=== PATIENT | male | born 1970 | race Caucasian/White ===

== ENCOUNTER 2016-12-09 17:16 | Emergency (ER) | payer OTHER ==
[~2016-12-09] VITALS: Ht 175.3 cm; Wt 134.7 kg
[2016-12-09 17:57] LABS: ABSOLUTE BASOPHIL COUNT 0 /CUMM (0.0-0.2); ABSOLUTE EOSINOPHIL COUNT 0.1 /CUMM (0.0-0.7); ABSOLUTE GRANULOCYTE CT 6.2 /CUMM (1.4-6.5); BASOPHIL % 0.5 % (0.0-2.0); EOSINOPHIL % 1.4 % (0-5); GRANULOCYTE % 66.1 % (42.2-75.2); HEMATOCRIT 45.6 % (42-52); MEAN CORPUSCULAR HGB 27.4 PG (27.0-31.0); MEAN CORPUSCULAR HGB CONC 33.4 G/DL (33.0-37.0); MEAN CORPUSCULAR VOLUME 81.9 FL (80.0-94.0); MEAN PLATELET VOLUME 8.8 FL (7.4-10.4); PLATELET COUNT 197 /CUMM (130-400); RBC DISTRIBUTION WIDTH 14.4 % (11.5-14.5); RED BLOOD CELL CT 5.57 /CUMM (4.70-6.10); WHITE BLOOD CELL COUNT 9.3 /CUMM (4.8-10.8)
--- NOTE | 2016-12-09 18:10 | ED GENERAL ADULT ---
History of Present Illness General Chief Complaint: General Adult Stated Complaint: HIGH BP Source: patient, old records Exam Limitations: no limitations Vital Signs & Intake/Output Vital Signs & Intake/Output Vital Signs Date Time Temp Pulse Resp B/P B/P Pulse O2 O2 Flow FiO2 Mean Ox Delivery Rate 12/09 1820 99 Room Air 12/09 1729 98.8 78 16 160/106 99 Room Air Allergies Coded Allergies: No Known Allergies (12/09/16) Reconcile Medications Azilsartan Med/Chlorthalidone (Edarbyclor 40-25 MG Tablet) 40 MG-25 MG TABLET 1 TAB PO D HTN Nebivolol HCl (Bystolic) 10 MG TABLET 1 TAB PO DAILY HTN Triage Note: TRIAGE: CONCERNED ABOUT BP BECAUSE HE RAN OUT OF MEDS AND WENT FOUR DAYS WITHOUT TAKING ANTIHYPERTENSIVES. CALLED PMD DR RUBI AND RESTARTED DIOVAN AND BYSTOLIC FOR LAST TWO DAYS BUT EXPERIENCING SIGNIFICANT DIZZY SPELLS AND FLUTTERING IN CHEST. ALSO REPORTS LIGHTHEADED CLOUDED SENSATION BUT DENIES ACTIVE HEADACHE. MANUAL BP 160/106. DENIES SOB OR DIAPHORESIS. EKG BEING COMPLETED IN [facility] Triage Nurses Notes Reviewed? yes Onset: Abrupt Duration: day(s): (2) Timing: multiple episodes today Injury Environment: home Severity: mild No Modifying Factors: none Associated Symptoms: ANXIOUS HPI: 46 year old male with history of hypertension presents to the ER for chief complaint of episodes of palpitations, feeling of pressure sensation and the episodes lasting less than 1 minute. Had multiple episodes today. He been noncompliant with his blood pressure medications for the past 4 days but took one pill of each today after getting samples resector. He states that he went for over one month without medications and things got really bad so he decided to come here to get his prescriptions. No symptoms at this time. Denies any chest pain or shortness of breath. Denies any headache or blurred vision. No neuro symptoms. The pressure manually is 160/100 and the emergency department. He states he was due to have outpatient blood work before his doctor would prescribe him further medications. Potassium is 3.2. Past History Travel History Traveled to [place] past 21 day No Medical History Any Pertinent Medical History? see below for history Neurological: NONE EENT: NONE Cardiovascular: hypertension Respiratory: NONE Gastrointestinal: NONE Hepatic: NONE Renal: NONE Musculoskeletal: NONE Psychiatric: NONE Endocrine: NONE Blood Disorders: NONE Cancer(s): NONE Surgical History Surgical History: non-contributory Psychosocial History What is your primary language Romanian Tobacco Use: Never used ETOH Use: occasional use Illicit Drug Use: denies illicit drug use Family History Hx Contributory? No Review of Systems Review of Systems Constitutional: Reports: no symptoms. EENTM: Reports: no symptoms. Respiratory: Denies: cough, short of breath. Cardiovascular: Reports: see HPI (CHEST PRESSURE), palpitations. Denies: chest pain, peripheral edema, syncope. GI: Denies: abdominal pain. Genitourinary: Reports: no symptoms. Musculoskeletal: Reports: no symptoms. Skin: Reports: no symptoms. Neurological/Psychological: Denies: ataxia, confusion, headache. Hematologic/Endocrine: Denies: bruising, bleeding, polyuria, polydipsia. Immunologic/Allergic: Reports: no symptoms. All Other Systems: Reviewed and Negative Physical Exam Physical Exam General Appearance: well developed/nourished, alert, awake, anxious, mild distress Head: atraumatic, normal appearance Eyes: Bilateral: normal appearance, PERRL, pale conjunctivae. Ears, Nose, Throat: normal pharynx, normal ENT inspection, hearing grossly normal Neck: normal inspection, supple, full range of motion Respiratory: normal breath sounds, chest non-tender, no respiratory distress Cardiovascular: regular rate/rhythm, normal peripheral pulses Peripheral Pulses: 2+ radial (R), 2+ radial (L) Gastrointestinal: normal bowel sounds Neurologic/Psych: no motor/sensory deficits, awake, alert, oriented x 3 Skin: intact, normal color, warm/dry Core Measures ACS in differential dx? Yes ASA ordered for poss ACS? No-ACS ruled out CVA/TIA Diagnosis: No Severe Sepsis Present: No Septic Shock Present: No Progress Differential Diagnoses I considered the following diagnoses in my evaluation of the patient: [ UNCONTROLED HTN, AMI, UNSTABLE ANGINA, AORTIC DISSECTION] Plan of Care: Orders Procedure Date/time Status TROPONIN LEVEL 12/09 172 Complete COMPREHENSIVE METABOLIC PANEL 12/09 172 Complete CBC WITHOUT DIFFERENTIAL 12/10 1727 Complete EKG 12/09 172 Active Laboratory Tests 12/09/16 1739: Anion Gap 12, Estimated GFR > 60, BUN/Creatinine Ratio 23.3, Glucose 101 H, Calcium 9.2, Total Bilirubin 0.5, AST 24, ALT 48, Alkaline Phosphatase 85, Troponin I < 0.01, Total Protein 7.3, Albumin 4.4, Globulin 2.9, Albumin/ Globulin Ratio 1.5, CBC w Diff NO MAN DIFF REQ, RBC 5.57, MCV 81.9, MCH 27.4, RDW 14.4, MPV 8.8, Gran % 66.1, Lymphocytes % 21.7, Monocytes % 10.3 H, Eosinophils % 1.4, Basophils % 0.5, Absolute Granulocytes 6.2, Absolute Lymphocytes 2.0, Absolute Monocytes 1.0 H, Absolute Eosinophils 0.1, Absolute Basophils 0, PUBS MCHC 33.4 EKG, LABS ORDERED. BYSTOLIC, POTASSIUM ORDERED. PATIENT GIVEN RX FOR PRESCRIPTIONS. HE WILL FOLLOW UP WITH HIS PCP. INSTRUCTED TO MONITOR BLOOD PRESSURES AT HOME. (ROSEANN ENRIQUE,DANIELE) Initial ED EKG: NSR Departure Departure Time of Disposition: 1831 Disposition: HOME OR SELF CARE Condition: Stable Clinical Impression Primary Impression: Uncontrolled hypertension Secondary Impressions: Hypokalemia Referrals: UNKNOWN (PCP/Family) Additional Instructions: TAKE THE BYSTOLIC AND EDARBYCLOR DIRECTED. MONITOR YOUR BLOOD PRESSURE DISCUSSED. RETURN TO THE ER FOR ANY CHANGING OR WORSENING SYMPTOMS. Departure Forms: Customer Survey General Discharge Information Prescriptions: Current Visit Scripts Nebivolol HCl (Bystolic) 1 TAB PO DAILY #30 TAB Azilsartan Med/Chlorthalidone (Edarbyclor 40-25 MG Tablet) 1 TAB PO D #30 TAB Critical Care Note Critical Care Note Critical Care Time: non-applicable
[2016-12-09] MEDS ORDERED: EDARBYCLOR 40-1 EAC1 PO (18:32)
[2016-12-09] MEDS ORDERED: BYSTOLIC10 M1 PO (18:32)
[2016-12-09 19:00] VITALS: BP 160/99
== END 2016-12-09 19:12 ==
LOC: ERH 17:16
PROVIDERS: Emergency Medicine
DX: I10 Essential (primary) hypertension (principal); E87.6 Hypokalemia
CPT/HCPCS: 93005; 93010